=== PATIENT | male | born 1980 | race Caucasian/White ===

== ENCOUNTER 2019-01-21 20:29 | Emergency (ER) | payer BC ==
[~2019-01-21] VITALS: Ht 172.7 cm; Wt 95.3 kg
== END 2019-01-22 07:38 | disposition home or self-care (01) ==
LOC: ER 20:29
DX: I16.0 Hypertensive urgency (principal); I10 Essential (primary) hypertension; F10.129 Alcohol abuse with intoxication, unspecified; E86.0 Dehydration